=== PATIENT | female | born 1985 | race African-American/Black ===

== ENCOUNTER 2021-08-10 10:04 | Emergency (ER) | payer MEDICAID ==
[~2021-08-10] VITALS: Ht 170.2 cm; Wt 84.0 kg
[2021-08-10 10:29] VITALS: BP 104/59
== END 2021-08-10 15:07 | disposition left against medical advice (07) ==
LOC: ER 10:04
DX: Z53.21 Procedure and treatment not carried out due to patient leaving prior to being seen by health care provider (principal)